=== PATIENT | male | born 1930 | race Caucasian/White ===

== ENCOUNTER 2017-06-11 10:23 | Outpatient (CLI) | payer MEDICARE, BC | END 2017-06-11 10:24 | disposition EMS.NT | LOC: EMS 10:23 | PROVIDERS: ATTEND Surgery | DX: R42 Dizziness and giddiness (principal); R03.0 Elevated blood-pressure reading, without diagnosis of hypertension ==

== ENCOUNTER 2017-06-11 21:19 | Emergency (ER) | payer MEDICARE, BC ==
[2017-06-11 21:30] VITALS: BP 167/62
--- NOTE | 2017-06-11 21:41 | ED Physician Documentation ---
PD HPI CHEST PAIN - Stated complaint Stated Complaint: BLOOD PRESSURE - Chief complaint Chief Complaint: General - History obtained from History obtained from: Patient - History of Present Illness Timing - onset: Today (recent travel from home state and lives here on [facility] for 6 weeks of summer. Arrived couple days ago and is feeling sinus congestion, he thinks from smoke in the air. Had been plane travel too, so consider early URI. Noted his BP to be up today/tonight and felt increased pressure frontal area. Here for evaluation. He says his BP was over 200 systolic at home this evening.) Timing - onset during: Light activity Timing - duration: Hours (for his BP being elevated and feeling sinus pressure.) Timing - details: Gradual onset, Waxing and waning Quality: Pressure (noted some pressure feeling in chest when BP was elevated more. No recent exertional CP symptoms.) Location: Left chest Radiation: Left upper extremity (shoulder) Worsened by: No: Exertion Associated symptoms: Feeling faint / dizzy. No: Shortness of air, Nausea, Vomiting, Palpitations, Cough Similar symptoms before: Has not had sx before Recently seen: Not recently seen Review of Systems Constitutional: denies: Fever, Chills Nose: reports: Congestion, Sinus pressure / pain. denies: Rhinorrhea / runny nose Throat: denies: Sore throat Cardiac: denies: Palpitations, Pedal edema, Calf pain Respiratory: reports: Cough (mild). denies: Dyspnea GI: denies: Nausea, Vomiting, Diarrhea Skin: denies: Rash, Lesions Musculoskeletal: denies: Extremity swelling Neurologic: denies: Focal weakness, Numbness, Near syncope Psychiatric: reports: Insomnia (for the past 3 days, feeling jet lagged (came from [place], so 3 time zones off) and then poor sleep.) Endocrine: denies: Weight loss PD PAST MEDICAL HISTORY - Past Medical History Cardiovascular: Hypertension, Atrial fibrillation Neuro: TIA - Past Surgical History Past Surgical History: Yes General: Hiatal hernia repair Cardiovascular: Pacemaker HEENT: Cataracts - Present Medications Home Medications: Ambulatory Orders Medication Instructions Recorded Confirmed Lisinopril [Zestril] 5 mg PO BID 04/17/13 04/08/14 Tamsulosin [Flomax] 0.4 mg PO DAILY 04/17/13 04/08/14 Metoprolol Tartrate 12.5 mg PO BID #60 tablet 04/08/14 - Allergies Allergies/Adverse Reactions: Allergies Allergy/AdvReac Type Severity Reaction Status Date / Time levofloxacin [From Levaquin] AdvReac Severe wipes out Verified 06/11/17 21:30 [employer] amoxicillin [Amoxicillin] AdvReac shock/ BP Verified 06/11/17 21:30 elevated - Social History Does the pt smoke?: No Smoking Status: Never smoker Does the pt drink ETOH?: Yes Does the pt have substance abuse?: No - Immunizations Immunizations are current?: Yes - POLST Patient has POLST: No PD ED PE NORMAL - Vitals Vital signs reviewed: Yes - General General: Alert and oriented X 3, Well developed/nourished, Other (somewhat anxious) - HEENT HEENT: Atraumatic, Moist mucous membranes, Pharynx benign, Other (mild sinus tenderness to percussion frontal area. ) - Neck Neck: Supple, no meningeal sign, No adenopathy - Cardiac Cardiac: RRR, No murmur - Respiratory Respiratory: Clear bilaterally - Abdomen Abdomen: Soft, Non tender - Derm Derm: Normal color, Warm and dry - Extremities Extremities: Normal ROM s pain, No edema, No calf tenderness / cord - Neuro Neuro: Alert and oriented X 3, shirt maker 2-12 intact, No motor deficit, No sensory deficit, Normal speech, Other - Psych Psych: Normal mood, Normal affect Results - Vitals Vitals: Vital Signs - 24 hr 06/11/17 21:23 Temperature 36.4 C L Heart Rate 66 Respiratory 17 Rate Blood Pressure 167/62 H O2 Saturation 98 Oxygen O2 Source Room air Departure - Departure Disposition: 01 Home, Self Care Clinical Impression: Sinus pressure High blood pressure Qualifiers: Hypertension type: other secondary hypertension Qualified Code(s): I15.8 - Other secondary hypertension Condition: Stable Record reviewed to determine appropriate education?: Yes Comments: For the sinus congestion, use water or saline drops or spray a few times a day to help cleanse out the nasal passage and sinus drainage. Continue usual medications. Check your blood pressure over the next several days and see how it does. It presumably was reacting to your jet lag, sinus congestion, etc. At this point I would not change any medication unless it is consistently more elevated. Discharge Date/Time: 06/11/17 22:40
[2017-06-11] MEDS ORDERED: DEXAMETHASONE 10 MG/ML VIAL PO STA (22:04)
[2017-06-11] MEDS ORDERED: DEXAMETHASONE 10 MG/ML VIAL ONE (22:15)
== END 2017-06-11 22:40 | disposition home or self-care (01) ==
LOC: ED 21:19
DX: J32.9 Chronic sinusitis, unspecified (principal); I10 Essential (primary) hypertension; R94.31 Abnormal electrocardiogram [ECG] [EKG]; Z86.73 Personal history of transient ischemic attack (TIA), and cerebral infarction without residual deficits; Z95.0 Presence of cardiac pacemaker
CPT/HCPCS: 93005; 99283

== ENCOUNTER 2017-06-28 19:49 | Emergency (ER) | payer MEDICARE, BC ==
[2017-06-28 20:03] VITALS: BP 170/70
[2017-06-28] MEDS ORDERED: ACETAMINOPHEN 325 MG TABLET PO STA (22:14)
[2017-06-28] MEDS ORDERED: ACETAMINOPHEN 325 MG TABLET PO ONE (22:25)
--- NOTE | 2017-06-28 22:28 | ED Physician Documentation ---
PD HPI LOWER EXT INJURY - Stated complaint Stated Complaint: L LEG/HAND INJURY - Chief complaint Chief Complaint: Laceration - History obtained from History obtained from: Patient, Family - History of Present Illness PD HPI LOW EXT INJURY LOCATION: Left, Lower leg, Other (wrist) Where injury occurred: Street Timing - onset: How many hours ago (1) Timing - duration: Hours (1) Timing - details: Abrupt onset Pain level max: 3 Pain level now: 3 Improved by: Rest Worsened by: Moving, Palpating Associated symptoms: No: Weakness, Numbness, Tingling, Swelling Contributing factors: No: Anticoagulated - Additional information Additional information: Patient tripped and fell onto the concrete today. Has left wrist pain as well as left calf skin tears. No hip or back pain. No head injury. No neck pain. Review of Systems Constitutional: denies: Fever, Chills GI: denies: Vomiting Musculoskeletal: denies: Neck pain, Back pain Neurologic: denies: Focal weakness, Numbness, Confused, Altered mental status, Headache, Head injury PD PAST MEDICAL HISTORY - Past Medical History Cardiovascular: Hypertension, Atrial fibrillation Neuro: TIA - Past Surgical History Past Surgical History: Yes General: Hiatal hernia repair Cardiovascular: Pacemaker HEENT: Cataracts - Present Medications Home Medications: Ambulatory Orders Medication Instructions Recorded Confirmed Lisinopril [Zestril] 5 mg PO BID 04/17/13 06/28/17 Tamsulosin [Flomax] 0.4 mg PO DAILY 04/17/13 06/28/17 - Allergies Allergies/Adverse Reactions: Allergies Allergy/AdvReac Type Severity Reaction Status Date / Time levofloxacin [From Levaquin] AdvReac Severe wipes out Verified 06/28/17 20:03 [employer] amoxicillin [Amoxicillin] AdvReac shock/ BP Verified 06/28/17 20:03 elevated - Social History Does the pt smoke?: No Smoking Status: Never smoker Does the pt drink ETOH?: Yes Does the pt have substance abuse?: No - Immunizations Immunizations are current?: Yes Immunizations: TDAP current <10years - POLST Patient has POLST: No PD ED PE NORMAL - Vitals Vital signs reviewed: Yes - General General: Alert and oriented X 3, No acute distress, Well developed/nourished - HEENT HEENT: Atraumatic, PERRL, Moist mucous membranes - Neck Neck: Supple, no meningeal sign, No bony TTP - Cardiac Cardiac: RRR - Respiratory Respiratory: No respiratory distress, Clear bilaterally - Back Back: No spinal TTP - Derm Derm: Warm and dry - Extremities Extremities: Other (L wrist - Full range of motion without pain. Neurovascularly intact. No bony tenderness over the wrist, hand, forearm. No snuffbox tenderness. No swelling or ecchymosis. L calf - Several skin tears to the lateral aspect of the left calf. The longest is approximately 7 cm in length, curved. Jagged edges. There are 2 smaller areas that are approximately 1.5 cm each. Neurovascularly intact. No bony tenderness) - Neuro Neuro: Alert and oriented X 3 - Psych Psych: Normal mood, Normal affect Results - Vitals Vitals: Vital Signs - 24 hr 06/28/17 19:58 Temperature 36.8 C Heart Rate 55 L Respiratory 18 Rate Blood Pressure 170/70 H O2 Saturation 99 Oxygen O2 Source Room air PD MEDICAL DECISION MAKING - ED course Complexity details: considered differential, d/w patient, d/w family ED course: Patient is an 86-year-old male who presents to the emergency department after a fall in which he suffered multiple skin tears. These were irrigated thoroughly in the emergency department, the skin was stretched back and Mepitel placed over the wound. Bacitracin was then applied and dressings applied. No sutures to be performed. There is no bony tenderness over the left wrist and full range of motion without pain. Will not perform x-rays. He did not strike his head. Warnings of infection and instructions on wound care given at bedside. Also counseled on how to minimize scarring. They were also informed that this may need ongoing wound care. Patient and family counseled regarding signs and symptoms for which I believe and urgent re-evaluation would be necessary. Patient with good understanding of and agreement to plan and is comfortable going home at this time This document was made in part using voice recognition software. While efforts are made to proofread this document, sound alike and grammatical errors may occur. Departure - Departure Disposition: 01 Home, Self Care Clinical Impression: Skin tear Condition: Good Instructions: ED Laceration Ext Sutr Stap Tape Follow-Up: Provider,Other [Primary Care Provider] - Within 1 week (for wound check) Comments: Return if you worsen. Keep the wound clean. You can apply antibiotic ointment twice daily. Leave the mepitel in place until you see your doctor within the next week. Discharge Date/Time: 06/28/17 22:53
== END 2017-06-28 22:53 | disposition home or self-care (01) ==
LOC: ED 19:49
DX: S81.812A Laceration without foreign body, left lower leg, initial encounter (principal); W01.0XXA Fall on same level from slipping, tripping and stumbling without subsequent striking against object, initial encounter; Y92.488 Other paved roadways as the place of occurrence of the external cause; I10 Essential (primary) hypertension; I48.91 Unspecified atrial fibrillation; Z86.73 Personal history of transient ischemic attack (TIA), and cerebral infarction without residual deficits
CPT/HCPCS: 99282; 99283; A9270